=== PATIENT | female | born 1980 | race American Indian/Alaskan Native ===

== ENCOUNTER 2020-05-02 17:43 | Emergency (ER) | payer SELFPAY ==
[2020-05-02 21:34] LABS: Bilirubin,Urine NEG (Negative); Blood,Urine NEG (Negative); Color,Urine Yellow (Yellow); Mucus,Urine 3+ /HPF; Protein,Urine <15 mg/dL mg/dL (Negative)
[2020-05-02] MEDS ORDERED: AZITHROMYCIN 250 MG TAB PO ONE (21:49)
[2020-05-02] MEDS ORDERED: LIDOCAINE-MPF (1%) 10 MG/1 ML VIAL 5 ML INFILTRATI ONE (21:49)
[2020-05-02 21:52] LABS: HCG Qualitative,Urine Negative (Negative)
[2020-05-02 21:59] VITALS: BP 133/72
--- NOTE | 2020-05-02 22:04 | Emergency Department Report ---
ED Female HPI - General Chief complaint: Abdominal Pain Stated complaint: ABD PAIN Time Seen by Provider: 05/02/20 21:22 Source: patient Mode of arrival: Ambulatory Limitations: No Limitations - History of Present Illness Initial comments: Patient is a 39-year-old female presents emergency room with complaints of lower abdominal pain that began a couple days ago. She states that she has been having vaginal discharge for the last 2 weeks. Patient states that she has had these symptoms before when she had an STD. She denies any dysuria, dark urine, nausea, vomiting, diarrhea, fever, back pain. No past medical history. No allergies to medications. She is sexually active without protection. Last menstrual cycle 04/25/2020. - Related Data Previous Rx's Medication Instructions Recorded Last Taken Type Pnv,Calcium 72/Iron,Carb/Folic 1 each PO DAILY #30 tablet 07/19/18 Unknown Rx [ Plus Iron Tablet] metroNIDAZOLE [Flagyl] 500 mg PO BID 7 Days #14 tab 05/02/20 Unknown Rx Allergies Allergy/AdvReac Type Severity Reaction Status Date / Time No Known Allergies Allergy Unverified 07/19/18 10:46 ED Review of Systems ROS: Stated complaint: ABD PAIN Other details as noted in HPI Comment: All other systems reviewed and negative ED Past Medical Hx - Past Medical History Previous Medical History?: Yes Additional medical history: ANEMIA - Surgical History Past Surgical History?: Yes Additional Surgical History: facial sx, 2007 - Social History Smoking Status: Never Smoker Substance Use Type: None - Medications Home Medications: Home Medications Medication Instructions Recorded Confirmed Last Taken Type Pnv,Calcium 72/Iron,Carb/Folic 1 each PO DAILY #30 tablet 07/19/18 Unknown Rx [ Plus Iron Tablet] metroNIDAZOLE [Flagyl] 500 mg PO BID 7 Days #14 tab 05/02/20 Unknown Rx ED Physical Exam - General Limitations: No Limitations General appearance: alert, in no apparent distress - Head Head exam: Present: atraumatic, normocephalic - Eye Eye exam: Present: normal appearance - ENT ENT exam: Present: mucous membranes moist - Respiratory Respiratory exam: Present: normal lung sounds bilaterally. Absent: respiratory distress, wheezes, rales, rhonchi, stridor, chest wall tenderness, accessory muscle use, decreased breath sounds, prolonged expiratory - Cardiovascular Cardiovascular Exam: Present: regular rate, normal rhythm, normal heart sounds. Absent: systolic murmur, diastolic murmur, rubs, gallop - GI/Abdominal GI/Abdominal exam: Present: soft, normal bowel sounds. Absent: distended, tenderness, guarding, rebound, rigid - Speculum exam: Present: vaginal discharge, cervical discharge, other (mail handler: Lisa Puente PA-C). Absent: erythema, vaginal bleeding, foreign body, tissue Bi-manual exam: Present: normal bi-manual exam. Absent: cervical motion tendernes, adnexal tenderness, adnexal mass - Neurological Exam Neurological exam: Present: alert, oriented X3 - Psychiatric Psychiatric exam: Present: normal affect, normal mood - Skin Skin exam: Present: warm, dry, intact ED Course Vital Signs 05/02/20 05/02/20 20:13 20:21 Temperature 98.0 F 98.5 F Pulse Rate 79 81 Respiratory 18 18 Rate Blood Pressure 151/82 133/72 O2 Sat by Pulse 97 100 Oximetry ED Medical Decision Making - Medical Decision Making Patient is a 39-year-old female presents emergency room with complaints of lower abdominal pain that began a couple days ago. She states that she has been having vaginal discharge for the last 2 weeks. Patient states that she has had these symptoms before when she had an STD. She denies any dysuria, dark urine, nausea, vomiting, diarrhea, fever, back pain. No past medical history. No allergies to medications. She is sexually active without protection. Last menstrual cycle 04/25/2020. vss. On exam no abdominal tenderness palpation, no guarding, no rebound, no rigidity, normal bowel sounds, on pelvic examination patient has white vaginal and cervical discharge, no CMT, no adnexal tenderness or masses, mail handler Lisa Puente PA-C. UA without evidence of UTI. Urine is negative. Wet prep shows evidence of bacterial vaginosis. G/C swab sent. Offered patient prophylactic treatment for G/C and she states that she would like treatment. Patient given ceftriaxone and azithromycin while in the emergency department. Patient given prescription for Flagyl. Advised patient Please take medication as prescribed. Please do not drink alcohol taking medication. Please go to medical records in 1 week for results of your test but you have been treated for these today. Please have any partner tested and treated as well. Avoid sexual intercourse for 10 days. Please go to the health department or another clinic for full STD panel. Return to emergency room for any new or worsening symptoms. - Differential Diagnosis BV, yeast, STD, UTI, PID, vaginitis Critical care attestation.: If time is entered above; I have spent that time in minutes in the direct care of this critically ill patient, excluding procedure time. ED Disposition Clinical Impression: Vaginal discharge, Bacterial vaginosis Abdominal pain Qualifiers: Abdominal location: lower abdomen, unspecified Qualified Code(s): R10.30 - Lower abdominal pain, unspecified Disposition: TO HOME OR SELFCARE Is pt being admited?: No Does the pt Need Aspirin: No Condition: Stable Instructions: Bacterial Vaginosis (ED), Sexually Transmitted Diseases (ED), Safe Sex (ED) Additional Instructions: Please take medication as prescribed. Please do not drink alcohol taking medication. Please go to medical records in 1 week for results of your test but you have been treated for these today. Please have any partner tested and treated as well. Avoid sexual intercourse for 10 days. Please go to the health department or another clinic for full STD panel. Return to emergency room for any new or worsening symptoms. [employer] Address: [address] [place] [id number] Prescriptions: metroNIDAZOLE [Flagyl] 500 mg PO BID 7 Days #14 tab Referrals: [facility] [Provider Group] - 2-3 Days [facility] [Outside] - 2-3 Days [facility] [Outside] - 2-3 Days Forms: STI Treatment and Prevention Time of Disposition: 23:35 Print Language: ROMANSH
== END 2020-05-02 23:50 | disposition home or self-care (01) ==
LOC: ED 17:43
DX: N76.0 Acute vaginitis (principal); R10.30 Lower abdominal pain, unspecified; D64.9 Anemia, unspecified; Z79.899 Other long term (current) drug therapy; Z98.890 Other specified postprocedural states
CPT/HCPCS: 81001; 81025; 87210; 87591; 96372; 99283; J0696

== ENCOUNTER 2020-09-20 11:20 | Emergency (ER) | payer SELFPAY ==
[2020-09-20] MEDS ORDERED: LIDOCAINE (1%) 10 MG/1 ML VIAL 20 ML MDV INFILTRATI ONE (12:02)
--- NOTE | 2020-09-20 12:10 | Emergency Department Report ---
ED General Adult HPI - General Chief complaint: Skin/Abscess/Foreign Body Stated complaint: RT INDEX FINGER INFECTION Time Seen by Provider: 09/20/20 11:54 Source: patient Mode of arrival: Ambulatory Limitations: No Limitations - History of Present Illness Initial comments: 40-year-old -[place] female patient presents with complaints of right in dex finger pain and swelling x3 days. She states this started after she had acrylic nails put on. She denies any fever/chills/sweats, numbness/tingling in the finger, color changes, or decreased range of motion. Patient reports that she did see pus underneath her nail and took the acrylic nail off. No prior medical history per patient Severity scale (0 -10): 0 - Related Data Previous Rx's Medication Instructions Recorded Last Taken Type Pnv,Calcium 72/Iron,Carb/Folic 1 each PO DAILY #30 tablet 07/19/18 Unknown Rx [ Plus Iron Tablet] metroNIDAZOLE [Flagyl] 500 mg PO BID 7 Days #14 tab 05/02/20 Unknown Rx metroNIDAZOLE [Flagyl] 500 mg PO Q12HR 7 Days #14 tab 05/10/20 Unknown Rx Acetaminophen/Codeine [Tylenol 1 tab PO Q8H PRN #6 tab 09/20/20 Unknown Rx /Codeine # 3 tab] Ibuprofen [Motrin 800 MG tab] 800 mg PO Q8HR PRN #20 tablet 09/20/20 Unknown Rx Mupirocin [Bactroban 2%] 1 applic TP TID 7 Days #1 tube 09/20/20 Unknown Rx Sulfamethoxazole/Trimethoprim 1 each PO BID 10 Days #20 tablet 09/20/20 Unknown Rx [Bactrim DS TAB] Allergies Allergy/AdvReac Type Severity Reaction Status Date / Time No Known Allergies Allergy Verified 09/20/20 11:43 ED Review of Systems ROS: Stated complaint: RT INDEX FINGER INFECTION Other details as noted in HPI Constitutional: denies: chills, diaphoresis, fever, malaise, weakness Musculoskeletal: joint swelling, arthralgia Neurological: denies: numbness, paresthesias ED Past Medical Hx - Past Medical History Additional medical history: ANEMIA - Surgical History Additional Surgical History: facial sx, 2007 - Social History Smoking Status: Never Smoker Substance Use Type: None - Medications Home Medications: Home Medications Medication Instructions Recorded Confirmed Last Taken Type Pnv,Calcium 72/Iron,Carb/Folic 1 each PO DAILY #30 tablet 07/19/18 Unknown Rx [ Plus Iron Tablet] metroNIDAZOLE [Flagyl] 500 mg PO BID 7 Days #14 tab 05/02/20 Unknown Rx metroNIDAZOLE [Flagyl] 500 mg PO Q12HR 7 Days #14 tab 05/10/20 Unknown Rx Acetaminophen/Codeine [Tylenol 1 tab PO Q8H PRN #6 tab 09/20/20 Unknown Rx /Codeine # 3 tab] Ibuprofen [Motrin 800 MG tab] 800 mg PO Q8HR PRN #20 tablet 09/20/20 Unknown Rx Mupirocin [Bactroban 2%] 1 applic TP TID 7 Days #1 tube 09/20/20 Unknown Rx Sulfamethoxazole/Trimethoprim 1 each PO BID 10 Days #20 tablet 09/20/20 Unknown Rx [Bactrim DS TAB] ED Physical Exam - General Limitations: No Limitations General appearance: alert, in no apparent distress - Head Head exam: Present: atraumatic, normocephalic - Eye Eye exam: Absent: scleral icterus - Respiratory Respiratory exam: Present: normal lung sounds bilaterally. Absent: respiratory distress - Cardiovascular Cardiovascular Exam: Present: regular rate - Extremities Exam Extremities exam: Present: full ROM, other (Paronychia noted at the base of the left index finger with tenderness to palpation; no active drainage noted; patient has normal perfusion and sensation; full range of motion; swelling is minimal) - Neurological Exam Neurological exam: Present: alert, oriented X3, normal gait - Psychiatric Psychiatric exam: Present: normal affect, normal mood - Skin Skin exam: Present: warm, dry, intact, normal color. Absent: rash ED Course Vital Signs 09/20/20 09/20/20 11:46 15:09 Temperature 98.6 F Pulse Rate 73 79 Respiratory 18 16 Rate Blood Pressure 134/92 [Left] Blood Pressure 130/74 [Right] O2 Sat by Pulse 100 96 Oximetry ED Medical Decision Making - Radiology Data Radiology results: report reviewed XR finger(s) 2+V RT INDICATION / CLINICAL INFORMATION: index finger infection, r/o osteomyelitis. COMPARISON: None available. FINDINGS: No cortical lysis. Normal osseous mineralization. No foreign body. No subcutaneous emphysema. No acute fracture. Normal alignment. Joint spaces are preserved. No destructive osseous lesion or suspicious periosteal reaction. Impression: 1. No radiographic evidence of osteomyelitis. - Medical Decision Making 40-year-old -[place] female patient presents with complaints of right index finger pain and swelling x3 days. She states this started after she had acrylic nails put on. She denies any fever/chills/sweats, numbness/tingling in the finger, color changes, or decreased range of motion. Patient reports that she did see pus underneath her nail and took the acrylic nail off. No prior medical history per patient Upon further questioning, patient states pain has actually been ongoing for 3 weeks and just worsened a few days ago. X-ray performed to rule out osteomyel itis. X-ray is normal. Incision and drainage performed. Wound culture sent. Will discharge patient home on Bactrim. She is well-appearing, her vitals are WNL, she is stable for discharge home. Patient to follow-up with primary care in 3 days. Discussed wound care and strict return precautions in detail with patient who verbalizes understanding peer Critical care attestation.: If time is entered above; I have spent that time in minutes in the direct care of this critically ill patient, excluding procedure time. ED Disposition Clinical Impression: Paronychia of right index finger Disposition: DC-01 TO HOME OR SELFCARE Is pt being admited?: No Condition: Stable Instructions: Paronychia Prescriptions: Sulfamethoxazole/Trimethoprim [Bactrim DS TAB] 1 each PO BID 10 Days #20 tablet Mupirocin [Bactroban 2%] 1 applic TP TID 7 Days #1 tube Ibuprofen [Motrin 800 MG tab] 800 mg PO Q8HR PRN #20 tablet PRN Reason: Pain, Moderate (4-6) Acetaminophen/Codeine [Tylenol /Codeine # 3 tab] 1 tab PO Q8H PRN #6 tab PRN Reason: Pain , Severe (7-10) Referrals: [facility] [Provider Group] - 2-3 Days
[2020-09-20] MEDS ORDERED: IBUPROFEN 600 MG TAB PO ONE (13:35)
[2020-09-20] MEDS ORDERED: IBUPROFEN 800 MG TAB ONE (13:37)
[2020-09-20] MEDS ORDERED: IBUPROFEN 800 MG TAB PO ONE (13:37)
--- NOTE | 2020-09-20 13:59 | XRay Report ---
XR finger(s) 2+V RT INDICATION / CLINICAL INFORMATION: index finger infection, r/o osteomyelitis. COMPARISON: None available. FINDINGS: No cortical lysis. Normal osseous mineralization. No foreign body. No subcutaneous emphysema. No acute fracture. Normal alignment. Joint spaces are preserved. No destructive osseous lesion or s uspicious periosteal reaction. Impression: 1. No radiographic evidence of osteomyelitis. Signer Name: Rashi Johnson MD Signed: 09/20/2020 1:55 PM Workstation Name: [employer]
[2020-09-20] MEDS ORDERED: oxyCODONE /ACETAMINOPHEN 5-325MG TAB PO ONE (14:18)
[2020-09-20 15:12] VITALS: BP 134/92
== END 2020-09-20 15:15 | disposition home or self-care (01) ==
LOC: ED 11:20
DX: L03.011 Cellulitis of right finger (principal); Z79.899 Other long term (current) drug therapy
CPT/HCPCS: 87076; 87116; 87186; 99283

== ENCOUNTER 2020-10-12 01:33 | Emergency (ER) | payer SELFPAY ==
[2020-10-12 03:25] VITALS: BP 147/95
[2020-10-12 04:33] LABS: Bilirubin,Urine NEG (Negative); Blood,Urine NEG (Negative); Color,Urine Yellow (Yellow); Mucus,Urine 3+ /HPF
[2020-10-12 04:35] LABS: HCG Qualitative,Urine Negative (Negative)
--- NOTE | 2020-10-12 05:19 | Emergency Department Report ---
ED Female HPI - General Chief complaint: Abdominal Pain Stated complaint: VAGINAL PROBLEM Source: patient Mode of arrival: Ambulatory Limitations: No Limitations - History of Present Illness Initial comments: With BPH and erythema. Patient is a 40-year-old -Burm[place] female who presents for vaginal discharge white thick malodorous x5 days.. With intermittent abdominal cramping. There is no fever no chills no nausea vomiting.. Nucleate okay patient is tolerating p.o. intake. He can eat okay symptoms are exacerbated by nothing. There is been no fever or chills. MD Complaint: vaginal discharge - Related Data Previous Rx's Medication Instructions Recorded Last Taken Type Pnv,Calcium 72/Iron,Carb/Folic 1 each PO DAILY #30 tablet 07/19/18 Unknown Rx [ Plus Iron Tablet] metroNIDAZOLE [Flagyl] 500 mg PO BID 7 Days #14 tab 05/02/20 Unknown Rx metroNIDAZOLE [Flagyl] 500 mg PO Q12HR 7 Days #14 tab 05/10/20 Unknown Rx Acetaminophen/Codeine [Tylenol 1 tab PO Q8H PRN #6 tab 09/20/20 Unknown Rx /Codeine # 3 tab] Ibuprofen [Motrin 800 MG tab] 800 mg PO Q8HR PRN #20 tablet 09/20/20 Unknown Rx Mupirocin [Bactroban 2%] 1 applic TP TID 7 Days #1 tube 09/20/20 Unknown Rx Sulfamethoxazole/Trimethoprim 1 each PO BID 10 Days #20 tablet 09/20/20 Unknown Rx [Bactrim DS TAB] metroNIDAZOLE [Flagyl] 500 mg PO BID 7 Days #14 tab 10/12/20 Unknown Rx Allergies Allergy/AdvReac Type Severity Reaction Status Date / Time No Known Allergies Allergy Verified 09/20/20 11:43 ED Review of Systems ROS: Stated complaint: VAGINAL PROBLEM Other details as noted in HPI Constitutional: denies: chills, fever Eyes: denies: eye pain, eye discharge, vision change ENT: denies: ear pain, throat pain Respiratory: denies: cough, shortness of breath, wheezing Cardiovascular: denies: chest pain, palpitations Endocrine: no symptoms reported Gastrointestinal: abdominal pain. denies: nausea, vomiting, melena Genitourinary: denies: urgency, dysuria, frequency, hematuria, discharge, dyspareunia Musculoskeletal: denies: back pain, joint swelling, arthralgia Skin: denies: rash, lesions Neurological: denies: headache, weakness, paresthesias Psychiatric: denies: anxiety, depression Hematological/Lymphatic: denies: easy bleeding, easy bruising ED Past Medical Hx - Past Medical History Previous Medical History?: Yes Additional medical history: ANEMIA - Surgical History Past Surgical History?: Yes Additional Surgical History: facial sx, 2007 - Social History Smoking Status: Never Smoker Substance Use Type: None - Medications Home Medications: Home Medications Medication Instructions Recorded Confirmed Last Taken Type Pnv,Calcium 72/Iron,Carb/Folic 1 each PO DAILY #30 tablet 07/19/18 Unknown Rx [ Plus Iron Tablet] metroNIDAZOLE [Flagyl] 500 mg PO BID 7 Days #14 tab 05/02/20 Unknown Rx metroNIDAZOLE [Flagyl] 500 mg PO Q12HR 7 Days #14 tab 05/10/20 Unknown Rx Acetaminophen/Codeine [Tylenol 1 tab PO Q8H PRN #6 tab 09/20/20 Unknown Rx /Codeine # 3 tab] Ibuprofen [Motrin 800 MG tab] 800 mg PO Q8HR PRN #20 tablet 09/20/20 Unknown Rx Mupirocin [Bactroban 2%] 1 applic TP TID 7 Days #1 tube 09/20/20 Unknown Rx Sulfamethoxazole/Trimethoprim 1 each PO BID 10 Days #20 tablet 09/20/20 Unknown Rx [Bactrim DS TAB] metroNIDAZOLE [Flagyl] 500 mg PO BID 7 Days #14 tab 10/12/20 Unknown Rx ED Physical Exam - General Limitations: No Limitations General appearance: alert, in no apparent distress - Head Head exam: Present: atraumatic, normocephalic - Eye Eye exam: Present: normal appearance, EOMI Pupils: Present: normal accommodation - ENT ENT exam: Present: mucous membranes moist - Neck Neck exam: Present: normal inspection, full ROM. Absent: tenderness - Respiratory Respiratory exam: Present: normal lung sounds bilaterally, chest wall tenderness. Absent: respiratory distress, wheezes, rhonchi - Cardiovascular Cardiovascular Exam: Present: regular rate, normal rhythm, normal heart sounds. Absent: systolic murmur, diastolic murmur, rubs, gallop - GI/Abdominal GI/Abdominal exam: Present: soft, normal bowel sounds. Absent: distended, tenderness, guarding, rebound, rigid, bruit, hernia - Rectal Rectal exam: Present: deferred - External exam: Present: other (deferred per patient) - Extremities Exam Extremities exam: Present: normal inspection, full ROM, normal capillary refill - Back Exam Back exam: Present: normal inspection, full ROM. Absent: tenderness, CVA tenderness (R), CVA tenderness (L) - Neurological Exam Neurological exam: Present: alert, oriented X3, CN II-XII intact, normal gait - Psychiatric Psychiatric exam: Present: normal affect, normal mood - Skin Skin exam: Present: warm, dry, intact, normal color. Absent: rash ED Course Vital Signs 10/12/20 02:32 Temperature 98.0 F Pulse Rate 89 Respiratory 16 Rate Blood Pressure 147/95 O2 Sat by Pulse 100 Oximetry ED Medical Decision Making - Lab Data Labs 10/12/20 Unknown Urine Color Yellow Urine Turbidity Slightly-cloudy Urine pH 6.0 Ur Specific [place] 1.034 H Urine Protein 30 mg/dl Urine Glucose (UA) Neg Urine Ketones Neg Urine Blood Neg Urine Nitrite Neg Ur Reducing Substances Not Reportable Urine Bilirubin Neg Urine Ictotest Not Reportable Urine Urobilinogen 2.0 Ur Leukocyte Esterase Neg Urine WBC (Auto) 2.0 Urine RBC (Auto) 5.0 U Epithel Cells (Auto) 2.0 Urine Mucus 3+ Urine HCG, Qual Negative - Medical Decision Making Urinary tract leukocytes negative you hCG, patient does endorse new sexual partner , but his exam deferred per patient. Plan treat for BV , patient educated on same as well as new sexual partner will DC to home with prescription for Flagyl patient will follow-up with PCP in 2 to 3 days. Patient verbalized agreement understanding discharge plan. Patient DC'd home stable condition at this time. Critical care attestation.: If time is entered above; I have spent that time in minutes in the direct care of this critically ill patient, excluding procedure time. ED Disposition Clinical Impression: Bacterial vaginosis Disposition: DC-01 TO HOME OR SELFCARE Is pt being admited?: No Does the pt Need Aspirin: No Condition: Stable Instructions: Abdominal Pain (ED), Bacterial Vaginosis (ED), Bacterial Vaginosis Additional Instructions: discuss symptoms with new partner and BV diagnosis. , Prescriptions: metroNIDAZOLE [Flagyl] 500 mg PO BID 7 Days #14 tab Referrals: [facility] [Provider Group] - 3-5 Days Forms: Work/School Release Form(ED) Time of Disposition: 05:23
== END 2020-10-12 05:30 | disposition home or self-care (01) ==
LOC: ED 01:33
DX: N76.0 Acute vaginitis (principal); B96.89 Other specified bacterial agents as the cause of diseases classified elsewhere; Z79.899 Other long term (current) drug therapy
CPT/HCPCS: 81001; 81025; 99283